=== PATIENT | female | born 1990 | race American Indian/Alaskan Native ===

== ENCOUNTER 2017-03-16 12:32 | Emergency (ER) | payer MEDICAID, OTHER ==
--- NOTE | 2017-03-16 13:11 | C.PDOC ---
History Of Present Illness 26-year-old female, PMHx includes EtOH Abuse, presents to the emergency department requesting detox. Patient states her last detox was in 07/25. States she began drinking again three days ago; Patient notes that she drinks approximately 750mL of hard liquor everyday. While in waiting area, she developed a sharp stabbing anterior chest pain. Denies shortness of breath. Patient denies a Hx of alcoholic seizures. Notes that she develops nausea/ vomiting and abdominal pain if she does not drink. Time Seen by Provider: 03/16/17 13:01 Chief Complaint (Nursing): Substance Abuse History Per: Patient History/Exam Limitations: no limitations Onset/Duration Of Symptoms: Days Current Symptoms Are (Timing): Still Present Past Medical History Reviewed: Historical Data, Nursing Documentation, Vital Signs Vital Signs: Last Vital Signs Temp 98.8 F 03/16/17 17:11 Pulse 98 H 03/16/17 17:11 Resp 18 03/16/17 17:11 BP 123/83 03/16/17 17:11 Pulse Ox 95 03/16/17 17:11 - Medical History PMH: Anemia - [facility] Procedures ALCOHOL DETOXIFICATION (01/06/15) INDIVID PSYCHOTHERAP NEC (01/06/15) OTHER GROUP THERAPY (01/06/15) Family History: States: No Known Family Hx - Social History Hx Alcohol Use: Yes Hx Substance Use: No - Immunization History Hx Tetanus Toxoid Vaccination: No Hx Influenza Vaccination: No Hx Pneumococcal Vaccination: No Review Of Systems Except As Marked, All Systems Reviewed And Found Negative. Constitutional: Negative for: Fever Cardiovascular: Positive for: Chest Pain. Negative for: Palpitations, Edema Respiratory: Negative for: Shortness of Breath Gastrointestinal: Negative for: Nausea, Vomiting Musculoskeletal: Negative for: Back Pain Neurological: Negative for: Weakness, Numbness, Headache, Dizziness Physical Exam - Physical Exam Appears: Non-toxic, No Acute Distress Skin: Normal Color, Warm, Dry Head: Atraumatic, Normacephalic Eye(s): bilateral: Normal Inspection, PERRL, EOMI Nose: Normal Oral Mucosa: Moist Lips: Normal Appearing Neck: Normal ROM Cardiovascular: Rhythm Regular (tachycardic) Respiratory: Normal Breath Sounds, No Accessory Muscle Use Extremity: Normal ROM Neurological/Psych: Oriented x3 ED Course And Treatment - Laboratory Results Result Diagrams: 03/16/17 13:35 03/16/17 13:35 Lab Interpretation: Abnormal (Mild anemia, d-dimer 711, ETOH 375) ECG: Interpreted By Me ECG Rhythm: Sinus Rhythm ECG Interpretation: Normal O2 Sat by Pulse Oximetry: 98 (on Room Air) Pulse Ox Interpretation: Normal - CT Scan/US CT angio chest Other Rad Studies (CT/US): Read By Radiologist CT/US Interpretation: case discussed with Dr Lau. No evidence of PE, small cyst in mediastinum ? etiology. Suggest CT follow up in 2 months Progress Note: Case was discussed w/ mesh worker, who states that there are no detox beds available. Patient made aware; Pt will be discharged w/ a list of detox programs, and information for the detox co-ordinator/instructions for pre- screening process. Patient is agreeable with plan. All questions answered. Reevaluation Time: 17:04 Reassessment Condition: Improved (Case discussed with patient and her mother. They will follow up with her primary MD.) Disposition Counseled Patient/Family Regarding: Studies Performed, Diagnosis, Need For Followup - Disposition Referrals: Katja Womack MD [Non-Staff] - Disposition Time: 13:07 Condition: STABLE Instructions: Abuse of Alcohol (ED) - Clinical Impression Clinical Impression: ETOH abuse - Scribe Statement The provider has reviewed the documentation as recorded by the Scribanais Raymundo All medical record entries made by the Scribe were at my direction and personally dictated by me. I have reviewed the chart and agree that the record accurately reflects my personal performance of the history, physical exam, medical decision making, and the department course for this patient. I have also personally directed, reviewed, and agree with the discharge instructions and disposition.
[2017-03-16 13:42] LABS: HEMATOCRIT 33.6 % (34.0-47.0); MEAN CELL VOLUME 73.5 fL (81.0-99.0); MEAN CORPUSCULAR HEMOGLOBIN 23.3 pg (27.0-31.0); MEAN CORPUSCULAR HGB CONC 31.7 g/dL (33.0-37.0); MEAN PLATELET VOLUME 8.1 fL (7.2-11.7); RED CELL DISTRIBUTION WIDTH 19.3 % (11.5-14.5)
[2017-03-16 13:46] LABS: RBC URINE 1 /hpf (0-3); URINE BILIRUBIN NEGATIVE (NEGATIVE); URINE BLOOD 3+ (NEGATIVE); URINE COLOR Yellow (YELLOW); URINE GLUCOSE (UA) NORMAL (Normal); URINE KETONE NEGATIVE (NEGATIVE); URINE LEUKOCYTE ESTERASE NEG Leu/uL (Negative); URINE PROTEIN 1+ mg/dL (NEGATIVE); URINE UROBILINOGEN NORMAL mg/dL (0.2-1.0); WBC URINE 1 /hpf (0-5)
[2017-03-16 13:47] LABS: CHLORIDE 105 mmol/L (98-107); SODIUM 142 mmol/L (132-148)
[2017-03-16 13:48] LABS: POTASSIUM 3.9 mmol/L (3.6-5.2)
[2017-03-16 13:50] LABS: ALB/GLOB RATIO 1.4 (1.0-2.1); ALKALINE PHOSPHATASE 63 U/L (38-126); ALT/SGPT 25 U/L (9-52); AST/SGOT 45 U/L (14-36); BILIRUBIN,TOTAL 0.6 mg/dL (0.2-1.3); BLOOD UREA NITROGEN 10 mg/dL (7-17); CARBON DIOXIDE 25 mmol/L (22-30); GFR AFRICAN-AMERICAN > 60; GLUCOSE,RANDOM 80 mg/dL (65-105); TOTAL PROTEIN 7.5 g/dL (6.3-8.3)
[2017-03-16 13:51] LABS: CALCIUM 7.9 mg/dl (8.6-10.4)
[2017-03-16 14:09] LABS: ALCOHOL SERUM 375 mg/dl (0-10)
[2017-03-16 14:26] LABS: FREE T4 0.81 ng/dL (0.78-2.19)
[2017-03-16 14:40] LABS: THYROID STIMULATING HORMONE 0.78 mIU/L (0.46-4.68)
[2017-03-16 14:51] LABS: EOS # 0.2 K/uL (0.0-0.7); LYMPH # 2.8 K/uL (1.0-4.3); MONO # 0.5 K/uL (0.0-0.8)
[2017-03-16] MEDS ORDERED: Iodixanol 320 MG/ML 100 ML BOTTLE IV ONE (15:24)
[2017-03-16 17:12] VITALS: BP 123/83; PULSE 98; RESP 18; TEMP 98.8
--- NOTE | 2017-03-16 17:19 | CT ---
PROCEDURE: CT Chest with contrast (Pulmonary Angiogram) HISTORY: chest pain elevated d dimer COMPARISON: No prior study available for comparison TECHNIQUE: Axial computed tomography images were obtained of the chest in the pulmonary arterial phase of enhancement. Coronal and sagittal reformatted images were created and reviewed. Intravenous contrast dose: 100 cc Visipaque 320 contrast material. Radiation dose: Total exam DLP = 423.11 mGy-cm. This CT exam was performed using one or more of the following dose reduction techniques: Automated exposure control, adjustment of the mA and/or kV according to patient size, and/or use of iterative reconstruction technique. FINDINGS: PULMONARY ARTERIES: Note that the study is slightly limited due to suboptimal opacification with aorta and densely opacified secondary to late scanning following bolus injection of contrast material. The visualized pulmonary trunk, right and left main, lobar, segmental and proximal subsegmental branches of the pulmonary arteries demonstrate no definitive filling defects seen to suggest acute pulmonary embolus. . Pulmonary trunk measures approximately 2.55 cm. AORTA: Ascending thoracic aorta measures approximately 3.1 cm and descending thoracic aorta measures approximately 2.15 cm. LUNGS: Unremarkable. No nodule, mass or pulmonary consolidation. PLEURAL SPACES: Unremarkable. No effusion or pneuomothorax. HEART: Unremarkable. No cardiomegaly. No significant pericardial effusion. LYMPH NODES: There is a small approximately 12.3 x 11.9 mm rounded low-attenuation focus within the subcarinal region that exhibits Hounsfield units ranging between the negative and positive single digits. This could represent a small bronchogenic cyst ; differential diagnosis would also include other mediastinal cysts such as esophageal duplication cyst nor enteric cyst or pericardial cyst. Necrotic lymph node would unlikely as no other enlarged mediastinal lymph nodes are identified. CT scan in 2 months recommended to assess stability and exclude other pathology. The be BONES, CHEST WALL: Visualized thoracic vertebral bodies intact without evidence of acute or chronic compression fractures. Very minor multilevel degenerative spondylosis. OTHER FINDINGS: There is a small hiatal hernia with slight wall thickening of the distal esophagus that could be due to protrusion of gastric mucosa. Esophagitis not excluded. . The liver is incompletely visualized of there is moderate to fairly significant diffuse fatty hepatic infiltration. No obvious hepatic mass or collection seen within the visualized hepatic parenchyma. Portal and splenic veins are opacified. IMPRESSION: Limited study as described. No evidence of central pulmonary embolus. Suspect small cyst within the sub carinal region which may represent a bronchogenic cyst. See above for differential diagnostic considerations. . CT scan follow-up in 2 months could be performed to assess stability and exclude other pathology. . Moderate to significant fatty hepatic infiltration. Discussed with Dr. Campbell at approximately 4:53 p.m. with written down and read back verification.
[2017-03-16 19:05] VITALS: O2SAT 98
--- NOTE | 2017-03-18 12:18 | CARD ---
APPROVED REPORT EKG Measurement Heart [id number] <Conclusion> Normal sinus rhythm Normal ECG
== END 2017-03-16 19:07 | disposition home or self-care (01) ==
LOC: C.ER 12:32
DX: F10.10 Alcohol abuse, uncomplicated (principal); Y90.8 Blood alcohol level of 240 mg/100 ml or more
CPT/HCPCS: 71275; 80053; 80320; 80324; 80345; 80346; 80349; 80353; 80358; 80361; 81001; 83992; 84439; 84443; 84484; 84703; 85025; 85378; 93005; 99284; Q9967